=== PATIENT | male | born 1995 | race Caucasian/White ===

== ENCOUNTER 2018-08-04 18:56 | Emergency (ER) | payer OTHER | END 2018-08-05 00:05 | disposition home or self-care (01) | LOC: E/R 08-05 00:05 | DX: F41.9 Anxiety disorder, unspecified (principal); R40.2142 Coma scale, eyes open, spontaneous, at arrival to emergency department; R40.2362 Coma scale, best motor response, obeys commands, at arrival to emergency department; R40.2252 Coma scale, best verbal response, oriented, at arrival to emergency department; F17.210 Nicotine dependence, cigarettes, uncomplicated; R51 Headache | CPT/HCPCS: 70450; 99284-25 ==

== ENCOUNTER 2018-08-27 10:57 | Emergency (ER) | payer OTHER ==
[2018-08-27] MEDS: BELLADONNA/PHENOBARBITAL TAB PO (11:58)
[2018-08-27] MEDS: LIDOCAINE/MYLANTA 40 ML BTL PO (11:58)
== END 2018-08-27 13:20 | disposition home or self-care (01) ==
LOC: FTE 10:57
DX: R10.13 Epigastric pain (principal); F17.210 Nicotine dependence, cigarettes, uncomplicated
CPT/HCPCS: 93005; 99283-25